=== PATIENT | male | born 1950 | race Asian ===

== ENCOUNTER 2018-04-11 13:23 | Emergency (ER) | payer OTHER ==
[2018-04-11 14:55] LABS: Basophils # (Auto) 0.1 K/mm3 (0.0-0.1); Basophils % (Auto) 0.9 % (0.0-1.8); Eosinophils # (Auto) 0.2 K/mm3 (0.0-0.4); Eosinophils % (Auto) 2.4 % (0.0-4.3); Hematocrit 36.1 % (35.5-45.6); Hemoglobin 11.3 gm/dl (11.8-15.2); Lymphocytes # (Auto) 1.6 K/mm3 (1.2-5.4); Lymphocytes % (Auto) 22.3 % (13.4-35.0); Mean Corpuscular HGB Conc 31 % (32-34); Monocytes # (Auto) 0.3 K/mm3 (0.0-0.8); Monocytes % (Auto) 4.2 % (0.0-7.3); Platelet Count 247 K/mm3 (140-440); Red Blood Count 5.53 M/mm3 (3.65-5.03); Red Cell Distribution Width 14.9 % (13.2-15.2)
[2018-04-11 15:00] LABS: Mean Corpuscular Hemoglobin 20 pg (28-32); Mean Corpuscular Volume 65 fl (84-94)
[2018-04-11 15:04] LABS: BUN/Creatinine Ratio 30; Blood Urea Nitrogen 18 mg/dL (9-20); Calcium 8.7 mg/dL (8.4-10.2); Hemolysis Index 0
[2018-04-11 15:07] LABS: INR 0.88 (0.87-1.13)
[2018-04-11 15:08] LABS: Partial Thromboplastin Time 26.2 Sec. (24.2-36.6)
--- NOTE | 2018-04-11 16:44 | Cat Scan Report ---
FINAL REPORT EXAM: CT HEAD/BRAIN WO CON HISTORY: dizziness TECHNIQUE: CT examination of the head without IV contrast PRIORS: None. FINDINGS: Slight mucosal thickening maxillary, ethmoid, and sphenoid sinuses. Clear mastoid air cells and middle ear cavities. Senescent calcification in the basal ganglia. No acute air-fluid level visualized in the included air-filled sinuses. Bone windows demonstrate no acute fracture. There is ventricular and sulcal prominence compatible with global cerebrocortical atrophy. The brain contains no mass, mass effect, hemorrhage, or acute infarct. There is no extra-axial intracranial bleed, brain bleed, or midline shift. Atherosclerotic calcification in the carotid siphon bilaterally and both vertebral arteries. IMPRESSION: No acute CVA, intracranial bleed, or brain mass Paranasal sinus mucosal thickening without visible acute fluid level
--- NOTE | 2018-04-11 17:52 | XRay Report ---
FINAL REPORT EXAM: XR CHEST 1V AP HISTORY: Shortness of breath TECHNIQUE: Frontal portable examination of the chest PRIORS: None FINDINGS: Slight thoracic spine curvature with mid right apex. Atherosclerotic change is present in the thoracic aorta. Cardiac silhouette size is normal without vascular congestion. The regional skeleton is without acute pathology. There is no pulmonary consolidation, pleural effusion, or pneumothorax. IMPRESSION: No acute cardiopulmonary disease in the visualized chest
[2018-04-11] MEDS ORDERED: DELTASONE PO ONE (22:16)
[2018-04-11] MEDS ORDERED: ATIVAN PO ONE (22:17)
--- NOTE | 2018-04-11 22:17 | Emergency Department Report ---
ED General Adult HPI - General Chief complaint: Dizziness Stated complaint: DIZZY/WEAK Time Seen by Provider: 04/11/18 21:17 Source: patient Mode of arrival: Wheelchair Limitations: Language Barrier - History of Present Illness Initial comments: 68-year-old man presents awakening early this morning with a sense of dizziness and weakness on standing, and even on moving his head. He has been nauseated, predominantly when he is symptomatic, but when he lies back down and rests, symptoms tend to subside. There is no focal weakness, and all the nurse's notes report some arm pain and chest pain, patient denies any acute pains, tightness, difficulty breathing, although he does have nausea, with a sense of wanting to throw up when he is symptomatic. He has not had any signs of acute infection, no fever chills or diaphoresis, but does complain of nausea this morning, and also complains of chest pain, as well as a generalized throbbing headache. There's been no focal neurologic deficit. Past medical history significant primarily for hypertension, hypercholesterolemia. Patient had no known recent exposures, works at a local retail store, helps with stocking, has not had any injuries. During the time that he has been here, has been resting mostly comfortably, and has had a carton of chocolate milk, which is tolerated without difficulty. He has no other complaints while he is at rest at time of my examination. Patient is [place], speaks no Yemeni, daughter is with him, and interpretation services were offered, but daughter was comfortable translating for patient and transmitting my questions and instructions. - Related Data Previous Rx's Medication Instructions Recorded Last Taken Type Famciclovir [Famvir] 250 mg PO Q8HR #21 tablet 04/11/18 Unknown Rx LORazepam [Ativan] 1 mg PO ONCE #30 tablet 04/11/18 Unknown Rx Ondansetron [Zofran ODT TAB] 8 mg PO Q8HR PRN #15 tab.rapdis 04/11/18 Unknown Rx Prednisone [predniSONE 10 mg 10 mg PO .TAPER #1 tab.ds.pk 04/11/18 Unknown Rx (6-Day Pack, 21 Tabs)] Allergies Allergy/AdvReac Type Severity Reaction Status Date / Time No Known Allergies Allergy Verified 04/11/18 22:23 ED Review of Systems ROS: Stated complaint: DIZZY/WEAK Other details as noted in HPI ED Past Medical Hx - Past Medical History Previous Medical History?: Yes Hx Hypertension: Yes Additional medical history: high cholestrol - Surgical History Past Surgical History?: No - Social History Smoking Status: Never Smoker Substance Use Type: Alcohol - Medications Home Medications: Home Medications Medication Instructions Recorded Confirmed Last Taken Type Famciclovir [Famvir] 250 mg PO Q8HR #21 tablet 04/11/18 Unknown Rx LORazepam [Ativan] 1 mg PO ONCE #30 tablet 04/11/18 Unknown Rx Ondansetron [Zofran ODT TAB] 8 mg PO Q8HR PRN #15 tab.rapdis 04/11/18 Unknown Rx Prednisone [predniSONE 10 mg 10 mg PO .TAPER #1 tab.ds.pk 04/11/18 Unknown Rx (6-Day Pack, 21 Tabs)] ED Physical Exam - General Limitations: Language Barrier ED Course Vital Signs 04/11/18 04/11/18 04/11/18 14:05 20:25 20:30 Temperature 36.7 C Pulse Rate 64 58 L Respiratory 18 11 L 15 Rate Blood Pressure 160/88 170/85 O2 Sat by Pulse 95 96 Oximetry ED Medical Decision Making - Lab Data Result diagrams: 04/11/18 14:31 04/11/18 14:31 - EKG Data -: EKG Interpreted by Me (normal EKG) EKG shows normal: sinus rhythm (60 bpm), axis, intervals, QRS complexes, ST-T waves - EKG Data When compared to previous EKG there are: previous EKG unavailable - Medical Decision Making Patient has clear findings of acute left vestibular neuronitis, with positive response on even sitting up as well as on Darek-Hallpike maneuver. Patient will be treated with steroids, antivirals, famciclovir, as well as symptomatically treatment with antiemetics ondansetron, as well as lorazepam for symptom control. He'll be given work release for an extended period, cooperative 2 weeks, and he should have repeat examination with his doctor in the coming week to assess how he is doing. - Differential Diagnosis dehydration, TIA, viral syndrome, neuronitis, vertigo Critical Care Time: No Critical care attestation.: If time is entered above; I have spent that time in minutes in the direct care of this critically ill patient, excluding procedure time. ED Disposition Clinical Impression: Acute vestibular neuronitis of left ear, Vertigo Disposition: DC-01 TO HOME OR SELFCARE Is pt being admited?: No Does the pt Need Aspirin: No Condition: Stable Instructions: Vertigo (ED), Benign Paroxysmal Positional Vertigo (ED) Additional Instructions: You have a form of dizziness called acute vestibular neuronitis, which is dysfunction of the nerves of equilibrium, which helped control your symptoms of balance. When the nerve impulses are unequal, as happens when one of the nerves becomes inflamed, and your case on the left side, this can cause significant dizziness, a sense of movement around the room, as well as secondary nausea and vomiting. The primary treatment for this is rest, but we have medications to help with the symptoms. You May be up and around, as much as you can tolerate, but we recommend not working, as your subject to falls, and may be unsafe around machinery or work equipment. We are prescribing an antiviral medication, Famvir, to be taken 3 times per day , for the next week. If this is a viral infection, this may help reduce duration of symptoms. IV prednisone, which is an anti-inflammatory steroid medication, which will help decrease inflammation, and can help speed recovery of the nerve as well. Take this medicine daily until the prescription is completely gone Lorazepam is a medicine to help decrease sensation of dizziness, and is used to treat the symptoms. He may take this when he feels symptoms, primarily dizziness, up to 3-4 times per day. We're prescribing ondansetron, which is a nausea medication, if he had significant nausea as a result of your dizziness. We have provided a work excuse for the next 2 weeks We recommend that you have repeat examination by your primary care doctor next week, to assess how you're doing, and to see if you needed further care. Prescriptions: Famciclovir [Famvir] 250 mg PO Q8HR #21 tablet LORazepam [Ativan] 1 mg PO ONCE #30 tablet Ondansetron [Zofran ODT TAB] 8 mg PO Q8HR PRN #15 tab.rapdis PRN Reason: Nausea Prednisone [predniSONE 10 mg (6-Day Pack, 21 Tabs)] 10 mg PO .TAPER #1 tab.ds.pk Referrals: PRIMARY CARE,MD [Primary Care Provider] - 3-5 Days Forms: Work/School Release Form(ED) Time of Disposition: 23:48 Print Language: PUERTO RICAN
[2018-04-11] MEDS ORDERED: FAMVIR PO SCH (23:00)
[2018-04-12 00:27] VITALS: BP 140/65
== END 2018-04-12 00:35 | disposition home or self-care (01) ==
LOC: ED 13:23
DX: H81.22 Vestibular neuronitis, left ear (principal); I10 Essential (primary) hypertension; E78.00 Pure hypercholesterolemia, unspecified
CPT/HCPCS: 36415; 70450; 71045; 80048; 82962; 84484; 85025; 85379; 85610; 85730; 93005; 93010; 99285; J7512